=== PATIENT | female | born 1990 | race African-American/Black ===

== ENCOUNTER 2016-12-18 11:40 | Emergency (ER) | payer SELFPAY ==
[~2016-12-18] VITALS: Ht 165.1 cm; Wt 83.0 kg
[2016-12-18] MEDS ORDERED: advil (12:20)
[2016-12-18] MEDS ORDERED: tylenol (12:20)
[2016-12-18 13:23] LABS: BASOPHILS # (AUTO) 0.1 K/uL (0.0-0.2); BASOPHILS % (AUTO) 0.8 % (0.0-2.0); EOSINOPHILS # (AUTO) 0.1 K/uL (0.0-0.7); EOSINOPHILS % (AUTO) 1.3 % (0.0-7.0); HEMATOCRIT 37.8 % (37.0-47.0); HEMOGLOBIN 12.1 g/dL (12.0-16.0); LYMPHOCYTES # (AUTO) 2.4 K/uL (0.8-4.8); LYMPHOCYTES % (AUTO) 24.6 % (20.5-51.5); MEAN CORPUSCULAR HEMOGLOBIN 26.5 uug (27.0-31.0); MEAN CORPUSCULAR HGB CONC 32 g/dL (32.0-37.0); MEAN CORPUSCULAR VOLUME 82.6 fL (81.0-99.0); MONOCYTES # (AUTO) 0.5 K/uL (0.1-1.30); NEUTROPHILS # (AUTO) 6.6 K/uL (1.8-8.9); NEUTROPHILS % (AUTO) 68.3 % (38.5-71.5); PLATELET COUNT (AUTO) 298 K/uL (150-450); RED BLOOD CELL COUNT(AUTO) 4.57 MIL/uL (4.20-5.40); RED CELL DISTRIBUTION WIDTH 13.7 % (11.5-14.5); WHITE BLOOD COUNT (AUTO) 9.7 K/uL (4.0-11.2)
[2016-12-18 13:27] LABS: *BILIRUBIN,URIN NEGATIVE (NEGATIVE); *BLOOD, URINE NEGATIVE (NEGATIVE); *CLARITY,URINE CLOUDY (CLEAR); *COLOR,URINE YELLOW (YELLOW); *KETONES,URINE NEGATIVE (NEGATIVE); *PROTEIN,URINE NEGATIVE (NEGATIVE); *UROBILINOGEN,URINE 0.2 E.U./dl (NORMAL); LEUKOCYTE ESTERASE ,URINE 1+ (NEGATIVE); NITRITE, URINE POSITIVE (NEGATIVE); UGLUCOSE NEGATIVE (NEGATIVE)
[2016-12-18 13:30] LABS: CALCIUM 9.1 mg/dL (8.5-10.1); CREATININE 0.8 mg/dL (0.6-1.3)
--- NOTE | 2016-12-18 13:30 | NUR ---
CHAPERONED THE US. PT TOLERATED WELL
[2016-12-18 13:36] LABS: ALBUMIN 3.6 g/dL (3.4-5.0); BILIRUBIN,DIRECT 0.1 mg/dL (0.0-0.2); BILIRUBIN,TOTAL 0.3 mg/dL (0.2-1.0); TOTAL PROTEIN, SERUM 7.5 g/dL (6.4-8.2)
[2016-12-18 13:48] LABS: BACTERIA,URINE MANY /HPF (NONE SEEN); SQUAMOUS EPITHELIAL CELL,UR MANY /HPF (NONE SEEN)
[2016-12-18 13:49] LABS: RBC,URINE 0-3 /HPF (0-3)
--- NOTE | 2016-12-18 14:00 | NUR ---
Patient discharged to home in stable conditon. Written and verbal after care instructions given. Patient verbalizes understanding of instructions.PT ACCOMPANIED BY SO.
== END 2016-12-18 14:00 | disposition home or self-care (01) ==
LOC: ER 11:40
DX: O26.891 Other specified pregnancy related conditions, first trimester (principal); O23.41 Unspecified infection of urinary tract in pregnancy, first trimester; K04.7 Periapical abscess without sinus; R10.9 Unspecified abdominal pain; J45.909 Unspecified asthma, uncomplicated
CPT/HCPCS: 36415; 76856; 80048; 80076; 81001; 83690; 84484; 84702; 84703; 85025; 99285; A4663; 70030-TC

== ENCOUNTER 2016-12-31 10:57 | Emergency (ER) | payer SELFPAY ==
[~2016-12-31] VITALS: Ht 165.1 cm; Wt 83.0 kg
[~2016-12-31 10:57] MED LIST: advil; tylenol
--- NOTE | 2016-12-31 11:22 | NUR ---
Pt ambulatory to bed 5 w/ mom, dr duvall at bedside for exam.
[2016-12-31 11:23] LABS: BASOPHILS # (AUTO) 0.1 K/uL (0.0-0.2); BASOPHILS % (AUTO) 0.8 % (0.0-2.0); EOSINOPHILS # (AUTO) 0.1 K/uL (0.0-0.7); EOSINOPHILS % (AUTO) 1.3 % (0.0-7.0); HEMOGLOBIN 11.7 g/dL (12.0-16.0); LYMPHOCYTES # (AUTO) 1.9 K/uL (0.8-4.8); LYMPHOCYTES % (AUTO) 23.5 % (20.5-51.5); MEAN CORPUSCULAR HEMOGLOBIN 26.3 uug (27.0-31.0); MEAN CORPUSCULAR HGB CONC 32 g/dL (32.0-37.0); MONOCYTES # (AUTO) 0.6 K/uL (0.1-1.30); MONOCYTES % (AUTO) 7.2 % (0.0-11.0); NEUTROPHILS # (AUTO) 5.4 K/uL (1.8-8.9); NEUTROPHILS % (AUTO) 67.2 % (38.5-71.5); PLATELET COUNT (AUTO) 326 K/uL (150-450); RED BLOOD CELL COUNT(AUTO) 4.46 MIL/uL (4.20-5.40); RED CELL DISTRIBUTION WIDTH 13.7 % (11.5-14.5); WHITE BLOOD COUNT (AUTO) 8.1 K/uL (4.0-11.2)
[2016-12-31 11:29] LABS: CALCIUM 9.4 mg/dL (8.5-10.1); CREATININE 0.7 mg/dL (0.6-1.3); POTASSIUM 3.7 mmol/L (3.5-5.1)
[2016-12-31 11:35] LABS: ALBUMIN 3.6 g/dL (3.4-5.0); BILIRUBIN,DIRECT 0.1 mg/dL (0.0-0.2); BILIRUBIN,TOTAL 0.3 mg/dL (0.2-1.0); TOTAL PROTEIN, SERUM 7.5 g/dL (6.4-8.2)
--- NOTE | 2016-12-31 12:00 | NUR ---
Patient is resting comfortably on gurney while watching bedside TV. NAD
--- NOTE | 2016-12-31 12:13 | NUR ---
Patient discharged to home in stable conditon. Written and verbal after care instructions given to aptient and family. Patient verbalizes understanding of instructions. Patient left ER with brisk steady gait.
[2016-12-31 12:19] LABS: *BILIRUBIN,URIN NEGATIVE (NEGATIVE); *BLOOD, URINE NEGATIVE (NEGATIVE); *COLOR,URINE YELLOW (YELLOW); *KETONES,URINE NEGATIVE (NEGATIVE); *PROTEIN,URINE NEGATIVE (NEGATIVE); *UROBILINOGEN,URINE 0.2 E.U./dl (NORMAL); NITRITE, URINE NEGATIVE (NEGATIVE); PH,URINE 5.5 (5.0-8.0); UGLUCOSE NEGATIVE (NEGATIVE)
[2016-12-31 12:28] LABS: *CLARITY,URINE HAZY (CLEAR); LEUKOCYTE ESTERASE ,URINE TRACE (NEGATIVE)
[2016-12-31 12:29] LABS: BACTERIA,URINE MODERATE /HPF (NONE SEEN); RBC,URINE 0-3 /HPF (0-3); SQUAMOUS EPITHELIAL CELL,UR MODERATE /HPF (NONE SEEN); WBC,URINE 0-3 /HPF (0-3)
== END 2016-12-31 12:13 | disposition home or self-care (01) ==
LOC: ER 10:57
DX: O34.81 Maternal care for other abnormalities of pelvic organs, first trimester (principal); Z3A.01 Less than 8 weeks gestation of pregnancy; J45.909 Unspecified asthma, uncomplicated
CPT/HCPCS: 36415; 76856; 85025; A4663

== ENCOUNTER 2017-01-30 14:28 | Inpatient (IN) | payer MEDICAID ==
[~2017-01-30] VITALS: Ht 165.1 cm; Wt 85.7 kg
[2017-01-30] MEDS ORDERED: IV NORMAL SALINE 500 ML BAG IV ONE (16:15)
[2017-01-30 16:20] LABS: *BILIRUBIN,URIN NEGATIVE (NEGATIVE); *BLOOD, URINE Trace-lysed (NEGATIVE); *COLOR,URINE YELLOW (YELLOW); *KETONES,URINE NEGATIVE (NEGATIVE); *PROTEIN,URINE NEGATIVE (NEGATIVE); *UROBILINOGEN,URINE 0.2 E.U./dl (NORMAL); LEUKOCYTE ESTERASE ,URINE 2+ (NEGATIVE); PH,URINE 5.5 (5.0-8.0); UGLUCOSE NEGATIVE (NEGATIVE)
[2017-01-30 16:31] LABS: BASOPHILS % (AUTO) 0.2 % (0.0-2.0); EOSINOPHILS # (AUTO) 0.2 K/uL (0.0-0.7); EOSINOPHILS % (AUTO) 1.2 % (0.0-7.0); HEMATOCRIT 36.2 % (31.2-41.9); HEMOGLOBIN 12.2 g/dL (10.9-14.3); LYMPHOCYTES # (AUTO) 3.1 K/uL (20.0-40.0); LYMPHOCYTES % (AUTO) 18.1 % (20.5-51.5); MEAN CORPUSCULAR HEMOGLOBIN 28.1 uug (24.7-32.8); MEAN CORPUSCULAR HGB CONC 34 g/dL (32.3-35.6); MEAN CORPUSCULAR VOLUME 83.4 fL (75.5-95.3); MONOCYTES # (AUTO) 0.8 K/uL (2.0-10.0); NEUTROPHILS # (AUTO) 12.9 K/uL (1.8-8.9); NEUTROPHILS % (AUTO) 75.5 % (38.5-71.5); PLATELET COUNT (AUTO) 250 K/uL (179-408); RED BLOOD CELL COUNT(AUTO) 4.35 MIL/uL (3.63-4.92); RED CELL DISTRIBUTION WIDTH 13.7 % (12.3-17.7)
[2017-01-30 16:44] LABS: ALBUMIN 3.3 g/dL (3.4-5.0); BILIRUBIN,TOTAL 0.2 mg/dL (0.2-1.0); CALCIUM 9.2 mg/dL (8.5-10.1); CREATININE 0.7 mg/dL (0.6-1.3); POTASSIUM 3.8 mmol/L (3.5-5.1); TOTAL PROTEIN, SERUM 7.2 g/dL (6.4-8.2)
[2017-01-30 16:57] LABS: *CLARITY,URINE CLOUDY (CLEAR); NITRITE, URINE POSITIVE (NEGATIVE)
[2017-01-30 16:59] LABS: WBC,URINE 20-50 /HPF (0-3)
[2017-01-30 17:00] LABS: BACTERIA,URINE MODERATE /HPF (NONE SEEN); MUCUS,URINE FEW /LPF (0-FEW); SQUAMOUS EPITHELIAL CELL,UR MANY /HPF (NONE SEEN)
[2017-01-30] MEDS ORDERED: CEFTRIAXONE 1 G in IV DEXTROSE 5% 50 ML IV ONE (17:15)
[2017-01-30] MEDS ORDERED: ACETAMINOPHEN 325 MG TABLET PO ONE (17:15)
[2017-01-30 17:19] LABS: BAND % (MANUAL) 2 % (0-10); LYMPHOCYTES % (MANUAL) 20 % (20-40); MONOCYTES % (MANUAL) 5 % (2-10); NEUTROPHILS % (MANUAL) 73 % (42-75); PLATELET ESTIMATE ADEQUATE
[2017-01-30] MEDS ORDERED: IV NS 1000 ML 1,000 ML IV ONE (17:30)
[2017-01-30] MEDS ORDERED: ACETAMINOPHEN ES 500 MG TABLET ONE (17:35)
[2017-01-30] MEDS ORDERED: CEFTRIAXONE 1 G VIAL ONE (17:36)
[2017-01-30] MEDS ORDERED: ONDANSETRON 4 MG/2 ML VIAL IV PRN (17:45)
[2017-01-30] MEDS ORDERED: Z GUARD REMEDY PASTE 57 GM TUBE TOP PRN (17:45)
[2017-01-30] MEDS ORDERED: MAGNESIUM HYDROXIDE 30 ML LIQUID UDC PO PRN (17:45)
--- NOTE | 2017-01-30 17:54 | NUR ---
Pt trans to m/s, NAD noted.
[2017-01-30 18:33] VITALS: BP 113/74
--- NOTE | 2017-01-30 18:46 | NUR ---
Received this admission from ER per meg, 26 yo female, with the diagnosis of Pyelonephritis. Transferred to bed comfortably. Routine admission care rendered. Awake, alert, oriented x 4, ambulatory. With admission orders from Dr. Painter. Dinner served and eating. Requesting to change IV site from Right AC, will restart after eating dinner and IVF to be started. Endorsed for further care
[2017-01-30 19:00] VITALS: BP 112/60
--- NOTE | 2017-01-30 19:20 | NUR ---
PATIENT ALERT ORIENTED, NO SOB NO CHEST PAIN NOTED. CONT TO MONITOR.
[2017-01-30] MEDS: IV NS 1000 ML 1,000 ML IV PRN (19:51)
[2017-01-31 05:29] VITALS: BP 104/65
[2017-01-31] MEDS: ACETAMINOPHEN 325 MG TABLET PO PRN ×2 (05:32→14:56)
[2017-01-31] MEDS: IV NS 1000 ML 1,000 ML IV PRN ×2 (05:36→21:14)
--- NOTE | 2017-01-31 06:12 | NUR ---
PATIENT SLEPT MOST OF THE NIGHT, COMPLAIN OF ABDOMINAL PAIN, GIVEN TYLENOL ORDERED, NO SOB NO CHEST PAIN, CONT TO MONITOR.
[2017-01-31 06:43] LABS: BASOPHILS # (AUTO) 0.1 K/uL (0.0-8.0); BASOPHILS % (AUTO) 0.6 % (0.0-2.0); EOSINOPHILS # (AUTO) 0.1 K/uL (0.0-0.7); EOSINOPHILS % (AUTO) 1.3 % (0.0-7.0); HEMATOCRIT 35.1 % (31.2-41.9); HEMOGLOBIN 11.9 g/dL (10.9-14.3); LYMPHOCYTES # (AUTO) 2.5 K/uL (20.0-40.0); LYMPHOCYTES % (AUTO) 24.2 % (20.5-51.5); MEAN CORPUSCULAR HEMOGLOBIN 28.6 uug (24.7-32.8); MEAN CORPUSCULAR HGB CONC 34 g/dL (32.3-35.6); MEAN CORPUSCULAR VOLUME 83.8 fL (75.5-95.3); MONOCYTES # (AUTO) 0.5 K/uL (2.0-10.0); MONOCYTES % (AUTO) 5.2 % (0.0-11.0); NEUTROPHILS # (AUTO) 7.1 K/uL (1.8-8.9); NEUTROPHILS % (AUTO) 68.7 % (38.5-71.5); PLATELET COUNT (AUTO) 275 K/uL (179-408); RED BLOOD CELL COUNT(AUTO) 4.19 MIL/uL (3.63-4.92); RED CELL DISTRIBUTION WIDTH 13.8 % (12.3-17.7); WHITE BLOOD COUNT (AUTO) 10.3 K/uL (3.8-11.8)
[2017-01-31 06:49] LABS: CALCIUM 8.8 mg/dL (8.5-10.1); CREATININE 0.7 mg/dL (0.6-1.3); MAGNESIUM 1.9 mg/dL (1.8-2.4); PHOSPHOROUS 3.8 mg/dL (2.5-4.9); POTASSIUM 4.1 mmol/L (3.5-5.1)
[2017-01-31] MEDS: PANTOPRAZOLE SODIUM 40 MG TABLET.DR PO SCH (08:29)
[2017-01-31 12:00] VITALS: BP 109/60
[2017-01-31 16:00] VITALS: BP 109/63
--- NOTE | 2017-01-31 18:51 | NUR ---
PATIENT IN BED RESTING AND SLEEPING INTERMITTENTLY DURING MY SHIFT. NO S/S OF DISTRESS NOTED. C/O OF BACK PAIN, TYLENOL WAS GIVEN FOR COMFORT. IV STILL INTACT. GOOD APPETITE. FAMILY MEMBER AT THE BEDSIDE. SAFETY AND COMFORT PROVIDED BY STAFF. WILL CONTINUE MONITORING.
--- NOTE | 2017-01-31 19:40 | NUR ---
PATIENT ON BED WATCHING TV. NO C/O OF PAIN OF ANY DISCOMFORT AT THIS TIME. WILL CONTINUE TO MONITOR.
[2017-01-31 20:13] VITALS: BP 112/71
[2017-01-31] MEDS ORDERED: CEFTRIAXONE 1 G in IV DEXTROSE 5% 50 ML IV SCH (21:00)
[2017-02-01 04:00] VITALS: BP 100/63
[2017-02-01] MEDS: PANTOPRAZOLE SODIUM 40 MG TABLET.DR PO SCH (06:09)
--- NOTE | 2017-02-01 06:20 | NUR ---
PATIENT VOMITED X 1 ABOUT 50 CC OF YELLOW FLUID . WILL CONTINUE TO MONITOR
[2017-02-01 06:41] LABS: BASOPHILS % (AUTO) 0.4 % (0.0-2.0); EOSINOPHILS # (AUTO) 0.2 K/uL (0.0-0.7); EOSINOPHILS % (AUTO) 1.4 % (0.0-7.0); HEMATOCRIT 35.7 % (31.2-41.9); HEMOGLOBIN 11.9 g/dL (10.9-14.3); LYMPHOCYTES # (AUTO) 2.2 K/uL (20.0-40.0); MEAN CORPUSCULAR HEMOGLOBIN 27.8 uug (24.7-32.8); MEAN CORPUSCULAR HGB CONC 33 g/dL (32.3-35.6); MEAN CORPUSCULAR VOLUME 83.4 fL (75.5-95.3); MONOCYTES # (AUTO) 0.5 K/uL (2.0-10.0); MONOCYTES % (AUTO) 4.2 % (0.0-11.0); PLATELET COUNT (AUTO) 303 K/uL (179-408); RED BLOOD CELL COUNT(AUTO) 4.28 MIL/uL (3.63-4.92); RED CELL DISTRIBUTION WIDTH 13.9 % (12.3-17.7); WHITE BLOOD COUNT (AUTO) 10.9 K/uL (3.8-11.8)
--- NOTE | 2017-02-01 06:50 | NUR ---
NEW IV STARTED ON RH OLD ONE WAS LEAKING . IV FLUID INFUSING ORDERED. NO N/V AT THIS TIME
[2017-02-01 06:58] LABS: CALCIUM 8.8 mg/dL (8.5-10.1); CARBON DIOXIDE 22 mmol/L (21-32); CHLORIDE 105 mmol/L (98-107); CREATININE 0.6 mg/dL (0.6-1.3); GFR > 130 mL/min (>60); GLUCOSE 84 mg/dL (74-106); POTASSIUM 3.9 mmol/L (3.5-5.1); SODIUM SERUM 137 mmol/L (136-145); UREA NITROGEN, BLOOD 8 mg/dL (7-18)
[2017-02-01] MEDS: ACETAMINOPHEN 325 MG TABLET PO PRN (07:58)
[2017-02-01 12:19] VITALS: BP 99/59
--- NOTE | 2017-02-01 12:20 | NUR ---
PATIENT IN BED RESTING DURING MY SHIFT. NO S/S OF ACUTE DISTRESS NOTED. C/O OF MILD PAIN DURING THE MORNING, TYLENOL WAS GIVEN FOR COMFORT. PATIENT HAVE BEEN DISCHARGE BY DR. ANTUNEZ IN SAFE CONDITION, DURING HER DC NO C/O OF ABDOMINAL PAIN, DIZZINESS, OR DISCOMFORT. DISCHARGE PLANNING WAS EXPLAINED BY STUDENT NURSE WIT MY ASSISTANCE. BELONGINGS WERE TAKEN, AND SHEET WAS SIGNED. IV AND ID REMOVED. I ACCOMPANIED PATIENT TO HER FAMILY MEMBER PRIVATE CAR WHO WAS TAKING HER HOME. SAFETY AND COMFORT PROVIDED BY STAFF DURING HER STAY.
== END 2017-02-01 12:15 | disposition home or self-care (01) | DRG 781 ==
LOC: ER 14:30 → MED 17:55
PROVIDERS: ADMIT Family Medicine; ATTEND Family Medicine
DX: O23.01 Infections of kidney in pregnancy, first trimester (principal); N10 Acute pyelonephritis; J45.909 Unspecified asthma, uncomplicated; D72.825 Bandemia; Z3A.10 10 weeks gestation of pregnancy; B96.20 Unspecified Escherichia coli [E. coli] as the cause of diseases classified elsewhere
CPT/HCPCS: 36415; 70030-TC; 83735; 84100; 85025; 86900; 86901; 87077; 87086; A4663; J0696; J3490; J7030; J7060